=== PATIENT | female | born 1990 ===

== ENCOUNTER 2016-05-30 22:35 | Inpatient (IN) | payer OTHER ==
[~2016-05-30] VITALS: Ht 162.6 cm; Wt 57.9 kg
[2016-05-30 23:20] VITALS: BP 128/80; PULSE 66; RESP 16; Ht 162.6 cm; Wt 57.9 kg
[2016-05-30 23:34] VITALS: BP 128/80; RESP 18
[2016-05-31] MEDS ORDERED: ONDANSETRON 4 MG INJ IV PRN (00:30)
[2016-05-31] MEDS ORDERED: morphine 4 MG/ML VIAL IV PRN (00:30)
[2016-05-31] MEDS: DEXTROSE 5%-0.45% NACL 1,000 ML IV SCH ×4 (01:19→22:19)
--- NOTE | 2016-05-31 03:01 | RADRPT ---
PROCEDURE: Ultrasound of the abdomen. CLINICAL INDICATION: Right upper quadrant pain. TECHNIQUE: Sonographic images of the abdomen were performed. COMPARISON: No pertinent prior examinations were submitted for comparison. FINDINGS: Liver: The liver is normal in echogencity and size measuring approximately 15.6 cm. The hepatic vei ns and portal veins are patent with appropriate directional flow. No intrahepatic ductal dilatation is seen. Gallbladder: Low possible stones are noted within the gallbladder. No pericholecystic fluid or ga llstones are visualized. The common duct measures 3.4 mm. Pancreas: There is limited evaluation of the pancreatic body and tail. The visualized portions of the pancreas are unremarkable. Kidneys: The right kidney measures 9.8 cm. There is normal corticomedullary differentiation. There is no evidence of renal calculus or hydronephrosis. IVC: The visualized portion of the inferior vena cava is unremarkable. Aorta: Normal in size. Free fluid: None. IMPRESSION: Cholelithiasis. RPTAT: HIKT .Sven Ruiz MD, MD Date Time Electronically viewed and signed by .Sven Ruiz MD, on 05/31/2016 03:00 .T/
--- NOTE | 2016-05-31 05:12 | HP ---
DATE OF ADMISSION: 05/30/2016 CHIEF COMPLAINT: Abdominal pain. HISTORY OF PRESENT ILLNESS: The patient is a 25-year-old female with no significant past medical hi story who initially presented at to [facility] with the chief complaint of abdominal pain. The pain is mainly localized in the right upper quadrant area with associated nausea. She de nied any fever, chills, chest pain, or shortness of breath. I was told by the physician construction management assistant emerson alaniz [place] prior to transfer that the patient had an ultrasound with the finding of cholecystitis. However, reading the radiology report states the finding of cholelithiasis without gallbladder wal l thickening. The patient was transferred here to [facility] because of insurance reason. REVIEW OF SYSTEMS: A 12-point review of systems performed and negative except as mentioned in the H PI. PAST MEDICAL HISTORY: Denies. PAST SURGICAL HISTORY: 4 years ago. SOCIAL HISTORY: Denied a history of tobacco, alcohol, or illicit drug use. ALLERGIES: NO KNOWN DRUG ALLERGIES. HOME MEDICATIONS: None. PHYSICAL EXAMINATION: VITAL SIGNS: Stable. GENERAL: No acute distress. She actually looks comfortable, answering questions appropriately, and able to speak in full sentences. HEENT: Normocephalic, atraumatic. No scleral icterus. Pupils are reactive to light. CARDIOVASCULAR: Regular rate and rhythm with no extra heart sounds. No murmurs, gallops, or rales. LUNGS: Clear. ABDOMEN: Soft. There is minimal tenderness to deep palpation in the right upper quadrant area with no guarding, no rigidity, no rebound tenderness. EXTREMITIES: No edema. NEUROLOGIC: No focal deficits. LABORATORY: Data from here is currently pending. IMAGING: Abdominal ultrasound from outside hospital shows cholelithiasis. IMPRESSION: 1. Cholelithiasis with probable cholecystitis. 2. Abdominal pain, secondary to above. PLAN: N.p.o. with IV fluid. We will provide pain medication as needed. We will consider obtaining either an ultrasound or CT abdomen and pelvis. We will place a surgery consult. Given abdominal p ain, we will place her on a PPI. For DVT prophylaxis, SCDs and also early ambulation is encouraged. Further workup and management per clinical course. Dictated By: JESSICA WHELAN/GAURAV Conf#: [id number] DID#: [id number]
[2016-05-31 05:26] LABS: BASOPHILS % 0.6 % (0.0-2.0); EOSINOPHILS # 0.1 10^3/ul (0.0-0.5); EOSINOPHILS % 1.1 % (0.0-7.0); HEMATOCRIT 37.8 % (37.0-47.0); HEMOGLOBIN 12.7 g/dl (12.0-16.0); LYMPHOCYTES # 2.6 10^3/ul (0.8-2.9); LYMPHOCYTES % 33.8 % (15.0-51.0); MEAN CORPUSCULAR HEMOGLOBIN 31.3 pg (29.0-33.0); MEAN CORPUSCULAR HGB CONC 33.6 g/dl (32.0-37.0); MEAN CORPUSCULAR VOLUME 93.3 fl (82.0-101.0); MEAN PLATELET VOLUME 9.7 fl (7.4-10.4); MONOCYTE # 0.4 10^3/ul (0.3-0.9); MONOCYTES % 5.3 % (0.0-11.0); NEUTROPHIL # 4.5 10^3/ul (1.6-7.5); NEUTROPHILS % 59.2 % (39.0-77.0); PLATELET COUNT 274 10^3/UL (140-440); RED BLOOD COUNT 4.05 10^6/ul (4.20-5.40); RED CELL DISTRIBUTION WIDTH 13.2 % (11.5-14.5); UNCORRECTED WBC 7.6 10^3/ul (4.8-10.8); WHITE BLOOD COUNT 7.6 10^3/ul (4.8-10.8)
[2016-05-31 05:56] LABS: CONDITION 1
[2016-05-31 06:05] LABS: ALBUMIN 3.8 g/dl (3.3-4.9)
[2016-05-31 06:06] LABS: POTASSIUM 3.3 mmol/L (3.5-5.1)
[2016-05-31 06:08] LABS: BILIRUBIN,INDIRECT 0.4 mg/dl (0-1.1); BILIRUBIN,TOTAL 0.4 mg/dl (0.2-1.3); CREATININE 0.65 mg/dl (0.44-1.00)
[2016-05-31 06:09] LABS: ALBUMIN/GLOBULIN RATIO 1.26; CALCIUM 8.6 mg/dl (8.4-10.2); MAGNESIUM 2.2 mg/dl (1.7-2.5); PHOSPHORUS 4.5 mg/dl (2.5-4.9); TOTAL PROTEIN 6.8 g/dl (6.1-8.1)
[2016-05-31 07:32] VITALS: BP 115/59; RESP 18
--- NOTE | 2016-05-31 16:16 | PN ---
Date/Time of Note Date/Time of Note DATE: 05/31/16 TIME: 16:14 Assessment/Plan VTE Prophylaxis VTE Prophylaxis Intervention: ambulation Lines/Catheters IV Catheter Type (from Nrs): Peripheral IV Urinary Cath still in place: No Assessment/Plan Chief Complaint/Hosp Course Assessment and plan 1. Cholelithiasis with reported cholecystitis. Patient with most recent imaging with no reported cholecystitis. She is still was symptomatic with pain. We'll get surgeon to evaluate. Analgesics as needed. Continue IV fluids. npo for now. Disposition and plan: Will consider HIDA scan. Surgeon to follow. d/c when medically stable Discussed plan of care with Dr. Madera Problems: Subjective 24 Hr Interval Summary Free Text/Dictation Still reports having abdominal pain on right upper abdominal quadrant Exam/Review of Systems Vital Signs Vitals Vital Signs Date Time Temp Pulse Resp B/P Pulse Ox O2 Delivery O2 Flow Rate FiO2 05/31/16 07:32 98.0 84 18 115/59 99 05/30/16 23:20 Room Air Intake and Output 05/30/16 05/30/16 05/31/16 15:00 23:00 07:00 Intake Total 500 ml Balance 500 ml Exam General: No acute signs or symptoms of distress Eyes: pupils equal round, Anicteric sclera Neck: Supple nontender, no JVD Cardiac: S1, S2 auscultated, regular rhythm and rate Pulmonary: No coarse rhonchi or breathing auscultated GI: Tender on palpation right abdominal quadrant Extremities: No edema bilateral lower extremities Skin: Clean dry and intact Neurologic: Alert to person place and time and situation Results Result Diagram: 05/31/16 0449 05/31/16 0449 Results 24 hrs Laboratory Tests Test 05/31/16 04:49 Alanine Aminotransferase (ALT/SGPT) 132 H Albumin 3.8 Albumin/Globulin Ratio 1.26 Alkaline Phosphatase 80 Anion Gap 15 Aspartate Amino Transf (AST/SGOT) 87 H Basophils # 0.0 Basophils % 0.6 Blood Urea Nitrogen 11 Calcium Level 8.6 Carbon Dioxide Level 26 Chloride Level 105 Creatinine 0.65 Direct Bilirubin 0.00 Eosinophils # 0.1 Eosinophils % 1.1 Globulin 3.00 Glucose Level 96 Hematocrit 37.8 Hemoglobin 12.7 Indirect Bilirubin 0.4 Lipase 45 Lymphocytes # 2.6 Lymphocytes % 33.8 Magnesium Level 2.2 Mean Corpuscular Hemoglobin 31.3 Mean Corpuscular Hemoglobin Concent 33.6 Mean Corpuscular Volume 93.3 Mean Platelet Volume 9.7 Monocytes # 0.4 Monocytes % 5.3 Neutrophils # 4.5 Neutrophils % 59.2 Nucleated Red Blood Cells # 0.0 Nucleated Red Blood Cells % 0.0 Phosphorus Level 4.5 Platelet Count 274 Potassium Level 3.3 L Red Blood Count 4.05 L Red Cell Distribution Width 13.2 Sodium Level 143 Total Bilirubin 0.4 Total Protein 6.8 White Blood Count 7.6 Medications Medications Current Medications Dextrose/Sodium Chloride (D5-1/2ns) 1,000 ml @ 125 mls/hr Q8H IV Last administered on 05/31/16t 13:33; Admin Dose 125 MLS/HR; Start 05/31/16 at 00:30 Ondansetron HCl (Zofran Inj) 4 mg Q6H PRN IV NAUSEA AND/OR VOMITING; Start at 00:30 Morphine Sulfate (morphine) 3 mg Q4H PRN IV PAIN; Start 05/31/16 at 00:30 Influenza Virus Vaccine (Fluzone) 0.5 ml ONCE ONCE IM* ; Start 06/02/16 at 09:00 ; Stop 06/02/16 at 09:01 JAMES ESTRADA May 31, 2016 16:16
[2016-05-31 19:23] VITALS: BP 128/74; RESP 21
--- NOTE | 2016-05-31 20:41 | CONS ---
[facility] INITIAL INPATIENT CONSULTATION NOTE PLACE OF SERVICE: [facility], 4th floor. DATE OF CONSULTATION: 05/31/2016 ASSESSMENT AND PLAN: A very pleasant, otherwise fairly healthy 25-year-old young lady with symptomatic cholelithiasis and possible early acute cholecystitis. Based on my clinical judgment and her abdominal exam as well as careful review of her ultrasound, I believe that there is enough reason to offer the patient an inpatient laparoscopic cholecystectomy, which we are planning to do in the next semi-elective available time slot. I explained the operation in detail with the help of diagrams and reviewed the risks, benefits, and alternatives and answered all the patient's questions. I believe that the patient understands and I obtained the patient's consent for this operation. With above assessment I have recommended the followin. N.p.o. after midnight. 2. Laparoscopic, possible open, cholecystectomy tomorrow morning. Thank you again for allowing us to participate in the care of this very pleasant lady and I am certain her wonderful family. If there are any questions , please feel free to call me at [phone]. TOTAL VISIT TIME: 45 minutes of which more than half was spent in [id number] discussion with the patient (no family present during any of my discussions with the patient) as well as discussion with multiple physicians and coordination of care. DATE OF ADMISSION: 05/30/2016 HISTORY OF PRESENT ILLNESS: The patient is a very pleasant otherwise healthy 25 -year-old lady with a previous history of about 4 years ago, admitted through the emergency department at [facility] on 05/31/2016 with abdominal pain in the right upper quadrant associated with 1 hour duration after eating a meal. Approximately 1 to 2 month history of stated pain symptoms and no prior visits to the emergency department or urgent cares. Workup included laboratory values, which were essentially unremarkable, with slight rise in AST and ALT with normal alkaline phosphatase and total bilirubin. Her ultrasound that demonstrated several stones and no significant thickening of the gallbladder wall or pericholecystic fluid. I had a chance to meet with the patient after being kindly asked to consult. She reports no other major problems. PAST MEDICAL HISTORY: None. PAST SURGICAL HISTORY: 4 years ago. ALLERGIES: NO KNOWN DRUG ALLERGIES. HOME MEDICATIONS: None. 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 She has 1 child. She lives with her family. No significant smoking, drinking, or intravenous drug use reported. FAMILY HISTORY: The patient's mother had a laparoscopic cholecystectomy done a few years ago. No other major reported surgical, medical, or oncologic problems. REVIEW OF SYSTEMS: No other pertinent positives or pertinent negatives in a complete 14-point review of systems. PHYSICAL EXAMINATION: GENERAL AND VITAL SIGNS: The patient appears to be a very pleasant young lady of descent, appearing stated age with afebrile state and normal vital signs and a BMI of 21.9 and in no acute distress. HEENT: Normocephalic and atraumatic. Extraocular muscles and hearing are grossly intact bilaterally and symmetrically. Sclerae are nonicteric. Oral cavity is clear; oral mucosa appear to be pink and moist. Dentition: fair. NECK: Supple. There is no lymphadenopathy or JVD. There is no submental, submandibular or supraclavicular lymphadenopathy. CHEST: Rises symmetrically with each breath; patient is breathing comfortably. There are no audible wheezes, rales or rhonchi on the gross exam. HEART: Pulse is regular and palpable on the right wrist. Capillary refill is normal. Carotid pulses are palpable bilaterally and symmetrically in the neck. EXTREMITIES: Lower extremities contain no pitting edema around the ankles bilaterally and symmetrically. ABDOMEN: Abdomen is soft, tender to palpation in right upper quadrant and nondistended. No evidence of ascites, organomegaly, caput medusae, engorged subcutaneous veins, or other abnormalities. There are no peritoneal signs or guarding. SKIN: Appears to be pink and feels warm to touch. NEUROLOGIC: Awake, alert, and follows commands appropriately. LABORATORY DATA: As mentioned above. IMAGING: Reviewed above. Note that I've personally reviewed all the images and I agree in general with their overall reported findings. Dictated By: JASMYNE RODRIGUEZ/GAURAV Conf#: [id number] DID#: [id number] CC: JESSICA PRICE MD;*EndCC* MTDD
[2016-06-01] VITALS (26 sets, daily range): BP systolic 108–145; BP diastolic 54–83; PULSE 61–97; RESP 15–20
[2016-06-01 05:25] LABS: BASOPHILS % 0.6 % (0.0-2.0); EOSINOPHILS # 0.1 10^3/ul (0.0-0.5); EOSINOPHILS % 1.8 % (0.0-7.0); HEMATOCRIT 34.8 % (37.0-47.0); HEMOGLOBIN 11.7 g/dl (12.0-16.0); LYMPHOCYTES # 2.9 10^3/ul (0.8-2.9); MEAN CORPUSCULAR HEMOGLOBIN 31.4 pg (29.0-33.0); MEAN CORPUSCULAR HGB CONC 33.6 g/dl (32.0-37.0); MEAN CORPUSCULAR VOLUME 93.4 fl (82.0-101.0); MEAN PLATELET VOLUME 9.7 fl (7.4-10.4); MONOCYTE # 0.4 10^3/ul (0.3-0.9); MONOCYTES % 6.3 % (0.0-11.0); NEUTROPHIL # 2.7 10^3/ul (1.6-7.5); NEUTROPHILS % 44.3 % (39.0-77.0); PLATELET COUNT 268 10^3/UL (140-440); RED BLOOD COUNT 3.73 10^6/ul (4.20-5.40); RED CELL DISTRIBUTION WIDTH 13.5 % (11.5-14.5); UNCORRECTED WBC 6.2 10^3/ul (4.8-10.8); WHITE BLOOD COUNT 6.2 10^3/ul (4.8-10.8)
[2016-06-01 05:38] LABS: CONDITION 1
[2016-06-01 05:43] LABS: POTASSIUM 3.4 mmol/L (3.5-5.1)
[2016-06-01 05:46] LABS: CREATININE 0.71 mg/dl (0.44-1.00)
[2016-06-01 05:47] LABS: CALCIUM 8.1 mg/dl (8.4-10.2)
[2016-06-01] MEDS ORDERED: CEFAZOLIN 1 GM INJ ONE (07:00)
[2016-06-01] MEDS ORDERED: BUPIVACAINE 0.25%/EPI (SDV) 30 ML INJ ONE (08:24)
[2016-06-01] MEDS: DEXTROSE 5%-0.45% NACL 1,000 ML IV SCH (08:30)
[2016-06-01] MEDS ORDERED: NEOSTIGMINE 3 MG/3 ML SYRINGE ONE (08:42)
[2016-06-01] MEDS ORDERED: MIDAZOLAM 1 MG/ML 2 ML INJ ONE (08:42)
[2016-06-01] MEDS ORDERED: GLYCOPYRROLATE 0.4 MG INJ ONE (08:42)
[2016-06-01] MEDS ORDERED: KETOROLAC 30 MG INJ ONE (08:42)
[2016-06-01] MEDS ORDERED: PROPOFOL 20 ML ONE (08:42)
[2016-06-01] MEDS ORDERED: ONDANSETRON 4 MG INJ ONE (08:42)
[2016-06-01] MEDS ORDERED: ROCURONIUM 50 MG INJ ONE (08:42)
--- NOTE | 2016-06-01 09:55 | HPN ---
Date/Time of Note Date/Time of Note DATE: 06/01/16 TIME: 09:45 Interval H&P Admission Note Pt. seen H&P reviewed: No system changes Pt. seen H&P reviewed. No system changes (I attest that I have seen and examined the patient and reviewed the operation in detail, as well as its risks , benefits and alternatives of the operation). I attest that I have seen and examined the patient and reviewed in detail the operation, and its associated risks, benefits and alternative. I have answered all the patient's questions to the best of my ability and the patient wishes to proceed. Please refer to rest of electronic medical record for additional updates. JASMYNE CALHOUN M.D. Jun 01, 2016 09:55
[2016-06-01] MEDS ORDERED: HYDROmorphONE 2 MG/ML SYG ONE (09:57)
[2016-06-01] MEDS ORDERED: ROPIVACAINE 0.5 % 30 ML VIAL ONE (10:03)
[2016-06-01] MEDS ORDERED: METOCLOPRAMIDE 10 MG INJ IV PRN (10:30)
[2016-06-01] MEDS ORDERED: ONDANSETRON 4 MG INJ IV PRN (10:30)
[2016-06-01] MEDS ORDERED: MEPERIDINE 25 MG INJ IV PRN (10:30)
[2016-06-01] MEDS ORDERED: HYDROmorphONE (0.2 MG/ML) 10ML SYG IV PRN ×3 (10:30)
[2016-06-01] MEDS ORDERED: DIPHENHYDRAMINE 50 MG INJ IV PRN (10:30)
--- NOTE | 2016-06-01 11:43 | OPR ---
Date/Time of Note Date/Time of Note DATE: 06/01/16 TIME: 11:43 Operative Report Operative Findings [facility] INPATIENT OPERATIVE NOTE PLACE OF SERVICE: [facility] DATE OF SURGERY: 06/01/2016 PREOPERATIVE DIAGNOSIS: 1. Symptomatic cholelithiasis, possible early acute cholecystitis 2. 4 years ago POSTOPERATIVE DIAGNOSIS: 1. Symptomatic cholelithiasis, possible early acute cholecystitis 2. 4 years ago OPERATION: 1. Laparoscopic cholecystectomy 2. Interrogation of cystic duct SURGEON: Jasmyne Steiner M.D. DIRECTOR REGULATORY AFFAIRS: [place] ANESTHESIA: General endotracheal tube anesthesia ANESTHESIOLOGIST: Nay Dailey M.D. BRIEF SUMMARY: An otherwise uncomplicated laparoscopic cholecystectomy was performed with findings of cholelithiasis and possible early acute cholecystitis. BRIEF HISTORY: The patient is a very pleasant, otherwise fairly healthy 25-year- old young lady with symptomatic cholelithiasis and possible early acute cholecystitis. Based on my clinical judgment and her abdominal exam as well as careful review of her ultrasound, I believe that there is enough reason to offer the patient an inpatient laparoscopic cholecystectomy, which we are planning to do in the next semi-elective available time slot. I explained the operation in detail with the help of diagrams and reviewed the risks, benefits, and alternatives and answered all the patient's questions. I believe that the patient understands and I obtained the patient's consent for this operation. For a detailed report of my consultation with patient, please refer to my separate consultation note. Please note that there was no family present during any of my discussions with the patient. STATEMENT OF THE INFORMED CONSENT: The patient appeared to understand the risks of the operation to include, but not be limited to risk of postoperative pain and scar tissue, possible infection or bleeding requiring other interventions such as opening the wound, placement of drainage catheters, or other operative interventions; possible injury to surrounding to structures including bowel, bladder, bile duct, or blood vessels, or solid organs such as liver, kidney, or pancreas requiring other interventions or procedures; possible leakage of bile from surgical clip sites, suture lines, or worse, from common bile duct injury, causing significant increase in morbidity and mortality and requiring multiple interventions including but not limited to, placement of drainage catheters, imaging studies, as well as operative interventions; possible other source of sepsis such as urinary tract infections or pneumonias, or other sources of potentially life threatening problems such as deep venous thrombus formation causing pulmonary embolism, myocardial arrhythmias and infarctions, and even . After careful consideration of all their options, the patient and family appeared to understand and wished to proceed with surgery. DESCRIPTION OF PROCEDURE: After obtaining informed consent, the patient was brought into the operating room and was placed in a normal supine position, where successful general endotracheal tube anesthesia was performed. The patient 's abdominal skin was prepped and draped, from the nipple line down to the level of the groins, in the usual sterile fashion. Intravenous access was already in place, and appropriately chosen and dosed prophylactic intravenous antimicrobials were administered. We then called a surgical time-out where patient's identification, date of , nature of the operation, allergies, presence of intravenous antimicrobials, presence of needed equipment, and any other concerns were reviewed and agreed upon by all members of the operating room team. We then started the operation by placing a 5-mm skin incision in the right- upper quadrant, subcostal midclavicular line, and introduced a 5-mm [employer] trocar into the peritoneal space, visualizing all the layers of the abdominal wall as we entered. Note that there was no indication of any injury to underlying structures once we entered the peritoneum. We insufflated the abdominal cavity to a maximum pressure of 15 mmHg, again, confirmed lack of any injury to underlying structures prior to visualizing the rest of the abdominal cavity. We found the fundus of the gallbladder to be visible. There was no evidence of malignancy. No evidence of calcifications or significant issues with adhesions, or other abnormalities. The liver appeared to be healthy. With this information, we went a head and placed the other trocars under direct visualization, after injecting their sites with 0.25% Marcaine with epinephrine , placing a 5-mm trocar in the umbilical midline area, a 5-mm trocar in the right anterior axillary line, and a 12-mm trocar in the midline subxiphoid region. With our instruments in place, we had excellent visualization and access to the right-upper quadrant. We then we grasped the fundus of the gallbladder and pointed up towards the right-upper quadrant. There was mild omental adhesions onto the infundibulum which we took down with judicious use of cautery, as well as meticulous blunt dissection. We were then able to grasp the infundibulum and pull it out in order to expose the critical triangle of Calot. We then placed our usual serosal cuts along the long axis of the gallbladder 1 cm away from its attachment to the liver bed up towards the fundus, and then joined these 2 lines under the infundibulum, taking care not to deliver any energy to underlying structures. We then performed meticulous dissection to identify and circumferentially isolate both the cystic duct and cystic artery. Because of the degree of mild inflammation in the region, I decided to maximize the degree of safety of the operation and took the gallbladder top down using cautery, prior to transecting the cystic artery between 2 surgical Endoclips, proximally and one distally. The cystic duct appeared to be slightly prominent and for this reason I made an opening in the distal cystic duct at the junction of the duct and the infundibulum of the gallbladder in order to be able to assess whether there are any retained stones within the cystic duct itself. None was found. The thickness of the cystic duct was slightly larger than the span of the 10 mm clip salvage winder and inspector. For this reason, I transected across the cystic duct using one firing of the vascular (white) load of the Endo MARIA C stapler. Note that we need sure that these were the only 2 structures going into the gallbladder. We then delivered the gallbladder out inside of an EndoCatch bag through the 12-mm trocar site without enlarging the fascia or contaminating the wound. There were a numerous small and large stones within the gallbladder. The gallbladder was sent to Pathology for evaluation. Returning to the abdominal cavity, we ensured that there was adequate hemostasis and bile-stasis prior to removal of all of or equipment, including the pneumoperitoneum, and then reapproximating the 12-mm trocar site with one [id number] 0 Vicryl suture, followed by washing the wounds with copious amounts of normal saline, and then reapproximating the skin using interrupted 4- 0 Monocryl sutures. Light dressing was then applied. At the end of the operation, both the sponge count and needle count were reportedly correct x2. The patient tolerated the procedure without any reported complications. ESTIMATED BLOOD LOSS: Less than 10 mL. BLOOD OR BLOOD PRODUCT TRANSFUSIONS: None to my knowledge. SPECIMENS: 1. Gallbladder COMPLICATIONS: None. DISPOSITION: Recovery area. Disclaimer: Inadvertent spelling and grammatical errors are likely due to EHR/ dictation software use and do not reflect on the quality of delivered patient care. JASMYNE STEINER M.D. Jun 01, 2016 11:43
[2016-06-01] MEDS ORDERED: DOCUSATE SODIUM 100 MG CAP PO PRN (12:00)
[2016-06-01] MEDS ORDERED: BISACODYL 10 MG SUPP PR PRN (12:00)
[2016-06-01] MEDS ORDERED: HYDROmorphONE 1 MG/ML SYG IV PRN (12:00)
[2016-06-01] MEDS ORDERED: NA PHOSPHATE/BIPHOS 133 ML ENEMA PR PRN (12:00)
[2016-06-01] MEDS ORDERED: HYDROCODONE/APAP (5/325) TAB PO PRN (12:00)
[2016-06-01] MEDS ORDERED: HYDR-3498 PO (12:45)
[2016-06-01] MEDS ORDERED: SENN-53 PO (12:45)
[2016-06-01] MEDS ORDERED: DOCU-144 PO (12:45)
--- NOTE | 2016-06-01 12:52 | PDOCDIS ---
Discharge Instructions DIAGNOSIS Discharge Diagnosis: 1. symptomatic cholelithiasis with possible early cholecystitis CONDITION Patient Condition: Stable HOME CARE INSTRUCTIONS: Diet Instructions: Low Fat /Cholesterol ACTIVITY: Activity Restrictions: Slowly Increase Activity Rest between Activity Avoid heavy lifting Avoid Heavy Housework FOLLOW UP/APPOINTMENTS Appointments 1. Follow up with Dr. Garrett Steiner in one week 2. Follow up with your primary care provider in 1-2 weeks OTHER ORDERS: Other Orders: 1. Call Dr. Garrett Steiner if you have worse abdominal pain/nausea/vomiting JAMES ESTRADA Jun 01, 2016 12:52
[2016-06-01] MEDS: D5W-0.45 NACL + KCL 20 MEQ 1,000 ML IV SCH ×2 (12:53→21:32)
[2016-06-01] MEDS: HYDROmorphONE 1 MG/ML SYG IV PRN ×2 (17:10→21:29)
[2016-06-01] MEDS: ENOXAPARIN 40 MG/0.4 ML SYG SC SCH (17:19)
[2016-06-02] MEDS: D5W-0.45 NACL + KCL 20 MEQ 1,000 ML IV SCH (05:05)
[2016-06-02 05:49] LABS: BASOPHILS % 0.4 % (0.0-2.0); EOSINOPHILS # 0.1 10^3/ul (0.0-0.5); EOSINOPHILS % 0.7 % (0.0-7.0); HEMATOCRIT 36.1 % (37.0-47.0); HEMOGLOBIN 12.1 g/dl (12.0-16.0); LYMPHOCYTES # 2.3 10^3/ul (0.8-2.9); LYMPHOCYTES % 26.7 % (15.0-51.0); MEAN CORPUSCULAR HEMOGLOBIN 31.2 pg (29.0-33.0); MEAN CORPUSCULAR HGB CONC 33.4 g/dl (32.0-37.0); MEAN CORPUSCULAR VOLUME 93.4 fl (82.0-101.0); MEAN PLATELET VOLUME 9.8 fl (7.4-10.4); MONOCYTE # 0.5 10^3/ul (0.3-0.9); MONOCYTES % 5.7 % (0.0-11.0); NEUTROPHIL # 5.7 10^3/ul (1.6-7.5); NEUTROPHILS % 66.5 % (39.0-77.0); PLATELET COUNT 262 10^3/UL (140-440); RED BLOOD COUNT 3.86 10^6/ul (4.20-5.40); RED CELL DISTRIBUTION WIDTH 13.5 % (11.5-14.5); UNCORRECTED WBC 8.6 10^3/ul (4.8-10.8); WHITE BLOOD COUNT 8.6 10^3/ul (4.8-10.8)
[2016-06-02 05:56] LABS: POTASSIUM 3.6 mmol/L (3.5-5.1)
[2016-06-02 05:59] LABS: CREATININE 0.7 mg/dl (0.44-1.00)
[2016-06-02 06:00] LABS: CALCIUM 8.4 mg/dl (8.4-10.2)
[2016-06-02 06:45] LABS: CONDITION 1
[2016-06-02 07:55] VITALS: BP 114/57; RESP 18
--- NOTE | 2016-06-02 08:50 | PN ---
Date/Time of Note Date/Time of Note LATE ENTRY DATE: 06/02/16 Assessment/Plan VTE Prophylaxis VTE Prophylaxis Intervention: ambulation Lines/Catheters IV [facility] Type [facility]from [facility] Peripheral IV Urinary Cath still in place: No Assessment/Plan Chief Complaint/Hosp Course Assessment and plan 1. Cholelithiasis with possible early cholecystitis. Patient s/p lap- itz, tolerating well. cont on analgesics.Encourage IS and ambulation DVT prophylaxis: early ambulation Disposition and plan: cont analgesics. advance diet as tolerated. d/c when cleared by consultants Discussed plan of care with Dr. Madera Problems: Subjective 24 Hr Interval Summary Free Text/Dictation seen s/p surgery. comfortable Exam/Review of Systems Vital Signs Vitals Vital Signs Date Time Temp Pulse Resp B/P Pulse Ox O2 Delivery O2 Flow Rate FiO2 06/02/16 07:55 97.9 77 18 114/57 97 06/01/16 17:15 Room Air 06/01/16 11:41 2.0 Intake and Output 06/01/16 06/01/16 06/02/16 14:59 22:59 06:59 Intake Total 950 ml 740 ml Output Total 5 ml 700 ml Balance 945 ml 40 ml Exam General: No acute signs or symptoms of distress Eyes: pupils equal round, Anicteric sclera Neck: Supple nontender, no JVD Cardiac: S1, S2 auscultated, regular rhythm and rate Pulmonary: No coarse rhonchi or breathing auscultated GI: Tender on palpation right abdominal quadrant Extremities: No edema bilateral lower extremities Skin: Clean dry and intact Neurologic: Alert to person place and time and situation Results Result Diagram: 06/02/16 04206/02/16 0420 Results 24 hrs Laboratory Tests Test 06/02/16 04:20 Anion Gap 13 Basophils # 0.0 Basophils % 0.4 Blood Urea Nitrogen 4 L Calcium Level 8.4 Carbon Dioxide Level 27 Chloride Level 106 Creatinine 0.70 Eosinophils # 0.1 Eosinophils % 0.7 Glucose Level 88 Hematocrit 36.1 L Hemoglobin 12.1 Lymphocytes # 2.3 Lymphocytes % 26.7 Mean Corpuscular Hemoglobin 31.2 Mean Corpuscular Hemoglobin Concent 33.4 Mean Corpuscular Volume 93.4 Mean Platelet Volume 9.8 Monocytes # 0.5 Monocytes % 5.7 Neutrophils # 5.7 Neutrophils % 66.5 Nucleated Red Blood Cells # 0.0 Nucleated Red Blood Cells % 0.0 Platelet Count 262 Potassium Level 3.6 Red Blood Count 3.86 L Red Cell Distribution Width 13.5 Sodium Level 142 White Blood Count 8.6 # Medications Medications Current Medications Ondansetron HCl (Zofran Inj) 4 mg Q6H PRN IV NAUSEA AND/OR VOMITING; Start at 00:30 Influenza Virus Vaccine 0.5 ml 0.5 ml ONCE ONCE IM* ; Start 06/02/16 at 09:00; Stop 06/02/16 at 09:01 Potassium Chloride/Dextrose/ Sod Cl (D5-1/2ns + KCl 20 Meq) 1,000 ml @ 100 mls/ hr Q10H IV Last administered on 06/02/16 05:05; Admin Dose 100 MLS/HR; Start 06/01/16 at 11:32 Acetaminophen/ Hydrocodone Bitart ([place] (5/325)) 1 tab Q4H PRN PO PAIN LEVEL 4 -7; Start 06/01/16 at 12:00 Acetaminophen/ Hydrocodone Bitart ([place] (5/325)) 2 tab Q4H PRN PO PAIN LEVEL 7 -10; Start 06/01/16 at 12:00 Hydromorphone HCl (Dilaudid) 0.5 mg Q2 PRN IV PAIN Last administered on 21:29; Admin Dose 0.5 MG; Start 06/01/16 at 12:00 Hydromorphone HCl (Dilaudid) 1 mg Q2 PRN IV PAIN; Start 06/01/16 at 12:00 Docusate Sodium (Colace) 100 mg BID PRN PO CONSTIPATION; Start 06/01/16 at 12: 00 Bisacodyl (Dulcolax Supp) 10 mg BID PRN [place] CONSTIPATION; Start 06/01/16 at 12: 00 Sodium Biphosphate/ Sodium Phosphate (Fleet Enema) 133 ml BID PRN [place] CONSTIPATION; Start 06/01/16 at 12:00 Famotidine (Pepcid Iv) 20 mg DAILY IV ; Start 06/02/16 at 09:00 Enoxaparin Sodium (Lovenox) 40 mg DAILY SC Last administered on 06/01/16 17:19 ; Admin Dose 40 MG; Start 06/01/16 at 13:00 REGIDOR,JAMES Jun 02, 2016 08:49
[2016-06-02] MEDS ORDERED: FAMOTIDINE 20 MG INJ IV SCH (09:00)
[2016-06-02] MEDS ORDERED: INFLUENZA VIRUS VACCINE 0.5 ML SYG IM* ONE (09:00)
[2016-06-02] MEDS: ENOXAPARIN 40 MG/0.4 ML SYG SC SCH (09:35)
[2016-06-02] MEDS: HYDROCODONE/APAP (5/325) TAB PO PRN ×2 (09:36→15:14)
--- NOTE | 2016-06-02 14:14 | PN ---
Date/Time of Note Date/Time of Note DATE: 06/02/16 TIME: 14:14 Assessment/Plan Lines/Catheters IV Catheter Type (from [facility]): Peripheral IV [place] in Place (from [facility]): No Assessment/Plan Assessment/Plan [facility] Progress Note Date of Service: 06/02/2016 Today's Assessment & Plan: Overall stable and doing well. No evidence for major postoperative complications or wound problems. No indication for acute surgical intervention. With above assessment, I've recommended the following for today: 1. Okay to discharge from my standpoint 2. Please include the following the patient's discharge instructions: "Please call [phone] if any of fever, nausea, vomiting, discharge from wound, wound redness, increase or sudden pain, blood in stool or vomit, or any other unusual signs or symptoms. Also, please call the same number in a few days to schedule an appointment for your follow up visit. Patient may remove dressings tomorrow. Showers OK starting tomorrow. No swimming , hot tub or bath for 2 weeks. No lifting more than 25 lbs for 8 weeks." Thank you again for your great care of this very pleasant young lady and her wonderful family. If there are any questions, please feel free to call me at . TOTAL VISIT TIME: 20 minutes of which more than half was spent in [id number] discussion with the patient as well as coordination of care between multiple physicians and providers. Disclaimer: Inadvertent spelling and grammatical errors are likely due to EHR/ dictation software use and do not reflect on the quality of delivered patient care. Also, please note that the electronic time recorded on this node does not necessarily reflect the actual time of the visit. Updated Clinical Summary: The patient is a very pleasant, otherwise fairly healthy 25-year-old young lady with symptomatic cholelithiasis and possible early acute cholecystitis. S/p laparoscopic cholecystectomy with interrogation of the cystic duct on 06/01/16. Past and present comorbidity list: 1. Symptomatic cholelithiasis, possible early acute cholecystitis 2. 4 years ago Subjective: No major events or complaints; no major abd pain and under control with medications; no n/v/d; no sob or cp; + flatus; + BM and normal; + activity Objective: Vitals: See below I's & O's: See below Exam: GENERAL: On exam, the patient was lying in bed and appeared to be comfortable and in no acute distress. ABDOMEN: Soft, nontender and nondistended. Incision dressings are clean, dry and intact without any evidence of underlying erythema, edema, discharge, or hernia. There are no peritoneal signs or guarding. SKIN: Skin appears to be pink and feels warm to touch. NEUROLOGIC: Patient is awake, alert, and follows commands appropriately. Labs: See below Exam/Review of Systems Vital Signs Vitals Vital Signs Date Time Temp Pulse Resp B/P Pulse Ox O2 Delivery O2 Flow Rate FiO2 06/02/16 07:55 97.9 77 18 114/57 97 06/01/16 17:15 Room Air 06/01/16 11:41 2.0 Intake and Output 06/01/16 06/01/16 06/02/16 15:00 23:00 07:00 Intake Total 950 ml 740 ml Output Total 5 ml 700 ml Balance 945 ml 40 ml Results Result Diagram: 06/02/16 0420 06/02/16 0420 JASMYNE CALHOUN M.D. Jun 02, 2016 14:14
--- NOTE | 2016-06-02 14:25 | DS ---
Date/Time of Note Date/Time of Note DATE: 06/02/16 TIME: 14:21 Discharge Summary Admission/Discharge Info Admit Date/Time May 30, 2016 at 23:17 Discharge Date/Time Final Diagnosis 1. Cholelithiasis with possible early cholecystitis Consults 1. Dr. Garrett Steiner Hospital Course This is a 25 female with no past medical history who came to [facility] after being transferred from outside hospital due to reports of abdominal pain. Patient did report pain was localized on right upper abdominal quadrant with associated nausea. She denied any chest pain or shortness of breath with this. She was told by her physician hospital aides and assistants teacher at [employer] that she did have findings suggestive of cholecystitis. Patient did have repeat abdominal ultrasound here at [facility] that did show cholelithiasis without any findings suggestive of cholecystitis. Patient still however remained symptomatic with pain when palpated on her right upper abdomen. She was seen by general surgeon and she did undergo laparoscopic cholecystectomy. She did tolerate procedure well. She was continued on analgesics. She was advanced with her diet. She did improve during her stay. She was instructed to follow-up with General surgeon within a week. The plan of care was discussed with the patient and patient did verbalize her understanding. On the day of discharge patient was in stable condition Discussed plan of care with Dr. Madera Discharge process time is 40 minutes Disposition: Home Home Meds Active Scripts Sennosides* (Senna Lax*) 8.6 Mg Tablet, 1 TAB PO Q12H Y for CONSTIPATION, #30 TAB Prov:JAMES ESTRADA 06/01/16 Docusate Sodium* (Colace*) 100 Mg Capsule, 100 MG PO BID Y for CONSTIPATION, # 30 CAP Prov:JAMES ESTRADA 06/01/16 Hydrocodone Bit-Acetaminophen (Hydrocodone Bit-APAP) 5-325MG Tablet, 1 TAB PO Q4H Y for PAIN LEVEL 4-7, #30 TAB Prov:JAMES ESTRADA 06/01/16 Follow-up Plan CONDITION Patient Condition: Stable HOME CARE INSTRUCTIONS: Diet Instructions: Low Fat /Cholesterol ACTIVITY: Activity Restrictions: Slowly Increase Activity Rest between Activity Avoid heavy lifting Avoid Heavy Housework FOLLOW UP/APPOINTMENTS Appointments 1. Follow up with Dr. Garrett Steiner in one week 2. Follow up with your primary care provider in 1-2 weeks OTHER ORDERS: Other Orders: 1. Call Dr. Garrett Steiner if you have worse abdominal pain/nausea/vomiting Pending Labs Laboratory Tests Test 06/02/16 04:20 Anion Gap 13 (8-16) Basophils # 0.010^3/ul (0.0-0.1) Basophils % 0.4% (0.0-2.0) Blood Urea Nitrogen 4mg/dl (7-20) Calcium Level 8.4mg/dl (8.4-10.2) Carbon Dioxide Level 27mmol/L (21-31) Chloride Level 106mmol/L (97-110) Creatinine 0.70mg/dl (0.44-1.00) Eosinophils # 0.110^3/ul (0.0-0.5) Eosinophils % 0.7% (0.0-7.0) Glucose Level 88mg/dl (70-220) Hematocrit 36.1% (37.0-47.0) Hemoglobin 12.1g/dl (12.0-16.0) Lymphocytes # 2.310^3/ul (0.8-2.9) Lymphocytes % 26.7% (15.0-51.0) Mean Corpuscular Hemoglobin 31.2pg (29.0-33.0) Mean Corpuscular Hemoglobin Concent 33.4g/dl (32.0-37.0) Mean Corpuscular Volume 93.4fl (82.0-101.0) Mean Platelet Volume 9.8fl (7.4-10.4) Monocytes # 0.510^3/ul (0.3-0.9) Monocytes % 5.7% (0.0-11.0) Neutrophils # 5.710^3/ul (1.6-7.5) Neutrophils % 66.5% (39.0-77.0) Nucleated Red Blood Cells # 0.010^3/ul (0.0-0.0) Nucleated Red Blood Cells % 0.0/100WBC (0.0-0.0) Platelet Count 37718^3/UL (140-440) Potassium Level 3.6mmol/L (3.5-5.1) Red Blood Count 3.8610^6/ul (4.20-5.40) Red Cell Distribution Width 13.5% (11.5-14.5) Sodium Level 142mmol/L (135-144) White Blood Count 8.610^3/ul (4.8-10.8) JAMES ESTRADA Jun 02, 2016 14:25
== END 2016-06-02 16:30 | disposition home or self-care (01) | DRG 419 ==
LOC: MS1 23:17
PROVIDERS: ADMIT Internal Medicine; ATTEND Internal Medicine
PROC: 0FT44ZZ Resection of Gallbladder, Percutaneous Endoscopic Approach (ICD-10-PCS; principal; 2016-06-01 09:00)
DX: K80.00 Calculus of gallbladder with acute cholecystitis without obstruction (principal)
CPT/HCPCS: 76705; 80048; 80053; 83690; 83735; 84100; 85025; 87040; 88304; 90686; J0690; J1170; J1650; J1885; J2250; J2405; J2710; J2795; J3480; J7042